=== PATIENT | male | born 1955 | race Caucasian/White ===

== ENCOUNTER → 2017-05-03 | Outpatient (CLI) | payer MEDICARE ==
--- NOTE | 2017-05-03 21:19 | RAD ---
MR of the right knee Indication: Chronic right knee pain, worsening medial knee pain. Technique: The standard multiplanar sequences are obtained. Findings: Mild motion degradation. Medial meniscus: Blunted with abnormal signal, compatible with a tear. Lateral meniscus: Abnormal signal and distortion compatible with a tear. Anterior cruciate ligament: Intact Posterior cruciate ligament: Intact Medial collateral ligament: Intact. Iliotibial band: Intact. Posterolateral structures: Fibular collateral ligament, biceps tendon and popliteus tendon are intact. Extensor mechanism: Intact. Fluid: Small joint effusion. Articular cartilage -patellofemoral joint: Severe chondromalacia at the lower femoral trochlea. Mild chondromalacia of the patella. -medial compartment: Moderate to severe chondromalacia. -lateral compartment: Severe chondromalacia at the posterior weightbearing lateral femoral condyle and lateral tibial plateau. Bones: No significant lesion or acute fracture. Soft tissue: Diffuse soft tissue edema or contusion. Intramuscular edema or strain within the distal vastus medialis muscle. Impression: 1. Medial meniscal tear. 2. Lateral meniscal tear. 3. Severe primary osteoarthritis. Electronically signed by: Tyrese Ivey MD (05/03/2017 9:16 PM) [facility]
== END | disposition home or self-care (01) ==
LOC: MRI 15:32
PROVIDERS: ATTEND Orthopaedic Surgery
DX: M17.11 Unilateral primary osteoarthritis, right knee (principal); S83.241A Other tear of medial meniscus, current injury, right knee, initial encounter; S83.281A Other tear of lateral meniscus, current injury, right knee, initial encounter; X58.XXXA Exposure to other specified factors, initial encounter; Y93.89 Activity, other specified; Y92.89 Other specified places as the place of occurrence of the external cause; Y99.8 Other external cause status
CPT/HCPCS: 73721

== ENCOUNTER → 2017-05-14 | Outpatient (CLI) | payer MEDICARE, OTHER ==
[~2017-05-14] MED LIST: CELE200C PO; CHOL100013 PO; FISH1CAP PO; LISI10TA2 PO
[2017-05-14 08:55] LABS: BASO % 1 % (0-3); EOS % 2 % (0-3); HEMATOCRIT 49.4 % (39.0-53.0); HEMOGLOBIN 16.1 g/dL (13.0-17.5); LYMPH # 1.7 x10^3/uL (1.0-4.8); LYMPH % 27 % (24-48); MEAN CORPUSCULAR HEMOGLOBIN 29 pg (25-35); MEAN CORPUSCULAR HGB CONC 33 g/dL (31-37); MEAN CORPUSCULAR VOLUME 90 fL (79-100); MONO % 8 % (0-9); NEUT % 63 % (31-73); PLATELET COUNT 253 x10^3/uL (140-400); WHITE BLOOD COUNT 6.6 x10^3/uL (4.0-11.0)
[2017-05-14 09:01] LABS: ALBUMIN 4.2 g/dL (3.4-5.0); CALCIUM 8.5 mg/dL (8.5-10.1); CREATININE 0.9 mg/dL (0.7-1.3); GFR 86.4; POTASSIUM 4.3 mmol/L (3.5-5.1)
[2017-05-14 09:06] LABS: PROTHROMBIN TIME PATIENT 12.5 SEC (11.7-14.0)
[2017-05-14 09:54] LABS: BILIRUBIN,URINE NEGATIVE (NEG); GLUCOSE,URINE NEGATIVE (NEG); NITRITE,URINE NEGATIVE (NEG); PROTEIN,URINE NEGATIVE (NEG-TRACE); UROBILINOGEN,URINE 0.2 mg/dL (0.2 mg/dL)
[2017-05-14 10:35] LABS: BACTERIA,URINE 0 /HPF (0-FEW); RBC,URINE OCC /HPF (0-2); SQUAMOUS EPITHELIAL CELL,UR FEW /LPF; WBC,URINE 0 /HPF (0-4)
--- NOTE | 2017-05-14 13:24 | RAD ---
2 view chest radiograph 05/14/2017 Indication: Preoperative evaluation for joint replacement. Hypertension. Comparison: None. Findings: Cardiac and mediastinal silhouettes are within normal limits. No pleural effusion, pneumothorax or focal consolidation. Impression: No acute cardiopulmonary abnormality.
== END | disposition home or self-care (01) ==
LOC: SURGPAT 13:32
PROVIDERS: ATTEND Orthopaedic Surgery
DX: Z01.818 Encounter for other preprocedural examination (principal); I10 Essential (primary) hypertension
CPT/HCPCS: 36415; 71020; 80048; 81001; 82040; 85027; 85610; 85651; 85730; 87641

== ENCOUNTER 2017-05-29 08:51 | Inpatient (IN) | payer MEDICARE, OTHER ==
[2017-05-29] VITALS (7 sets, daily range): BP systolic 140–160; BP diastolic 80–94
[~2017-05-29] VITALS: Ht 185.4 cm; Wt 97.5 kg
[~2017-05-29 08:51] MED LIST changes: +CELECOXIB 200 MG CAPSULE. PO PRN; +CLINDAMYCIN 600MG PREMIX 50 ML IV PRN; +HYDROcodone/APAP 7.5/325MG 1 TAB TABLET PO PRN; +IV RINGERS,LACTATED 1000ML 1,000 ML IV SCH; +LIDOCAINE 1% 1 ML SYRINGE. ID PRN; +MORPHINE SULFATE 5 MG, KETOROLAC TROMETHAMINE 30 MG, ROPIVacaine 0.5% PF 60 ML, EPINEPH... INT ART ONE; +ONDANSETRON PF 4 MG/2 ML VIAL. IV PRN; +PROCHLORPERAZINE 10 MG/2 ML VIAL. IV PRN; +TRANEXAMIC ACID 1,000 MG in IV NS 50ML -- 1ST BAG INJ ONE; +TRANEXAMIC ACID 1,000 MG in IV NS 50ML -- 2ND BAG INJ ONE; +fentaNYL PF VIAL 100 MCG/2 ML VIAL IV PRN
[2017-05-29 10:00] LABS: PROTHROMBIN TIME PATIENT 12.9 SEC (11.7-14.0)
[2017-05-29] MEDS ORDERED: MIDAZOLAM HCL/PF 2 MG/2 ML VIAL. ONE ×2 (10:33→11:36)
[2017-05-29] MEDS ORDERED: PROPOFOL 20 ML IV ONE (10:33)
[2017-05-29] MEDS ORDERED: PROPOFOL 50 ML IV ONE ×3 (10:33→13:41)
[2017-05-29] MEDS ORDERED: LIDOCAINE 2% PF Vial for OR 5 ML VIAL. ONE (10:34)
[2017-05-29] MEDS ORDERED: fentaNYL PF VIAL 100 MCG/2 ML VIAL ONE ×3 (11:24→15:15)
[2017-05-29] MEDS ORDERED: PROCHLORPERAZINE 10 MG/2 ML VIAL. IV PRN (11:45)
[2017-05-29] MEDS ORDERED: DEXTROSE 50% 25 GM / 50ML DISP.SYRIN. IV PRN (11:45)
[2017-05-29] MEDS ORDERED: oxyCODONE/APAP 5/325 1 TAB TABLET PO PRN (11:45)
[2017-05-29] MEDS ORDERED: 0.9 % SODIUM CHLORIDE 10 ML DISP.SYRIN. IV PRN (11:45)
[2017-05-29] MEDS ORDERED: MORPHINE SULFATE 2 MG/ML DISP.SYRIN. IV PRN (11:45)
[2017-05-29] MEDS ORDERED: CALCIUM CARBONATE 500 MG TAB.CHEW PO PRN (11:45)
[2017-05-29] MEDS ORDERED: ACETAMINOPHEN 325 MG TABLET. PO PRN (11:45)
[2017-05-29] MEDS ORDERED: diphenhydrAMINE 50 MG/ML VIAL IV PRN (11:45)
[2017-05-29] MEDS ORDERED: MORPHINE SULFATE 4 MG/ML DISP.SYRIN. IV PRN ×3 (11:45→11:58)
[2017-05-29] MEDS ORDERED: fentaNYL PF VIAL 100 MCG/2 ML VIAL IV PRN ×2 (11:45)
[2017-05-29] MEDS ORDERED: ZOLPIDEM 5 MG TABLET. PO PRN (11:45)
[2017-05-29] MEDS ORDERED: MORPHINE SULFATE 10 MG/ML VIAL. IV PRN (11:45)
[2017-05-29] MEDS ORDERED: GLYCOPYRROLATE 1 MG/5 ML VIAL. ONE (12:18)
[2017-05-29] MEDS: fentaNYL PF VIAL 100 MCG/2 ML VIAL IV PRN ×4 (14:46→15:44)
--- NOTE | 2017-05-29 14:53 | PDOC4 ---
Operative Note Operative Note Date of operation: 05/29/2017 Preoperative diagnosis: DJD right knee Postoperative diagnosis: Same Procedure is right total knee arthroplasty Surgeon: [facility] Dentist: Samantha Anesthesia spinal Estimated blood loss: 500 mL Complications: None Specimens: Cartilage surfaces to pathology Operative indications: Patient is a 61-year-old male well-known to me from long- standing nonoperative treatment of right knee pain and DJD. He previously got reasonable relief from corticosteroid injections which have now lost their effectiveness and was also unresponsive to hyaluronic acid injection anti- inflammatory medications and activity modification. At this point is having severe pain worse on start up worse with activities severely affecting his activities of daily living and is been uncontrolled by nonoperative means above. He has familiar with total knee arthroplasty in the past and we had talked through risks benefits postoperative course possible other nonoperative treatment alternatives which really I think have been exhausted this point he is really not a candidate for bracing and based on the limitations that he has is more willing to consider more definitive treatment at this time. Operative text, patient was identified procedure verified patient placed in the supine position on the operating table after adequate amounts of spinal anesthesia were administered along with some sedation a thigh tourniquet was placed on the right lower extremity and right lower extremity was prepped and draped in standard sterile fashion after timeout was performed patient procedure identified and verified a midline incision was made with a medial parapatellar approach. No tourniquet was used and bleeding points were controlled during the procedure with electrocautery and an aqua Mantis device. Patella was everted fat pad was excised he was noted to have significant degenerative change tricompartmentally drilling was carried out to accommodate the intramedullary guide and a standard cut was made as he had minimal flexion contracture distal femur was sized at a size 6 and placed in 3 of external rotation cutting guide was used to cut AP and chamfer cuts. ACL and menisci were excised PCL was initially preserved however on making the tibial cut the PCL was compromised enough that I elected to proceed with a posterior stabilized construct. After flexion and extension gaps were established with a size 13 mm gap spacer femur was prepared for the posterior stabilized implant and trialing was carried out with the size 13 mm spacer which gave excellent stability ligament balance. Patella was prepared with a 35 mm guide and reaming carried out lateral bone was excised to prevent any impingement and excellent patellar tracking was noted with the patellar button. The size 6 tibial component was drilled and broached for the keel and trial components were removed. After thorough anticoagulation carried out with an aqua Mantis device and the posterior capsule and in the area of the geniculate's, the following [employer] components were cemented into place with Palacos cement a size 6 journey tibial baseplate a size 6 right journey to Oxinium femoral component and a 35 mm resurfacing round patellar component. All excess cement was removed the knee was stabilized with a size 13 spacer and after cement was dry and the stability motion verified the temporary spacer was removed irrigation again carried out normal saline solution and a right 13 mm journey to highly cross- linked polyethylene articular insert was snapped in place Hemovac drain and pain catheter were placed pain catheter mixture was infused throughout the joint capsule and closure accomplished with #2 Ethibond in a interrupted and then running fashion. Strata fix #1 suture was run along the medial retinaculum as well subcutaneous closure with buried Vicryl suture skin closure with subcuticular #3 Monocryl strata fix and a shaina suction dressing was placed and verified to have a good seal. Patient was returned to recovery room in stable condition having tolerated the procedure well. Please note that Samantha harris was present and assisted in prepping draping retraction and skin closure SUZANNA SNOW MD May 29, 2017 14:53
--- NOTE | 2017-05-29 15:02 | RAD ---
Right knee, 2 views, 05/29/2017: History: Postop evaluation A total knee replacement has been inserted in satisfactory position. A surgical drain is present anteriorly. There is no evidence of a retained surgical instrument, needle or radiopaque sponge on these 2 views. IMPRESSION: No significant postoperative abnormality is detected.
[2017-05-29] MEDS ORDERED: WARFARIN 7.5 MG TABLET. PO ONE (17:30)
[2017-05-29] MEDS: oxyCODONE/APAP 7.5/325 1 TAB TABLET PO PRN (18:15)
[2017-05-29] MEDS: FERROUS SULFATE 325 MG TABLET. PO SCH (18:16)
[2017-05-29] MEDS: CLINDAMYCIN 600MG PREMIX 50 ML IV SCH (20:21)
[2017-05-29] MEDS: CELECOXIB 200 MG CAPSULE. PO SCH (21:34)
[2017-05-29] MEDS: IV DEXTROSE 5 %-0.45 % NACL 1,000 ML IV SCH ×2 (22:10→22:11)
--- NOTE | 2017-05-30 00:56 | ACF ---
Admission Forms Criteria PAIN MANAGEMENT GR Clinical Indications for Admission to Inpatient Care (Place 'X' for any and all applicable criteria): Hospital admission is needed for appropriate care of the patient because of 1 or more of the following are present (1)(2)(3)(4)(5): [ ]I. Severe pain requiring acute inpatient management as indicated by 1 or more of the following (2)(5)(10): [ ]a) Continuous or frequent (eg, every 2 to 4 hours) parenteral analgesics required [A] [ ]b) Necessity (ie, alternative approaches not effective) for analgesic regimen that can only be performed or initiated in inpatient setting [X]II. Pain causing debilitation to the point of inability to function or be supported at any other level of care [ ]III. Severe side effects from pain medications as indicated by ANY ONE of the following (12)(13)(14)(15): [ ]a) Uncontrollable seizures [ ]b) Cardiac arrhythmias of immediate concern [ ]c) Dehydration that is severe or persistent [ ]d) Vomiting that is severe or persistent [ ]e) Altered mental status that is severe or persistent [ ]f) Obstipation with inadequate GI function to maintain nutrition The original [employer] content created by [employer] has been revised. The portions of the content which have been revised are identified through the use of italic text or in bold, and [facility] has neither reviewed nor approved the modified material. All other unmodified content is copyright [employer]. Please see references footnoted in the original [employer] edition 2016 Admission Criteria Met?: Yes TELMA WALL May 30, 2017 00:56
[2017-05-30] MEDS: CLINDAMYCIN 600MG PREMIX 50 ML IV SCH ×2 (02:27→08:30)
[2017-05-30 02:30] VITALS: BP 143/86
[2017-05-30 04:56] LABS: INR 1.1 (0.8-1.1); PROTHROMBIN TIME PATIENT 13.6 SEC (11.7-14.0)
[2017-05-30] MEDS ORDERED: MAGNESIUM HYDROXIDE 2,400 MG/30 ML ORAL.SUSP. PO PRN (06:00)
[2017-05-30 06:46] VITALS: BP 140/84
[2017-05-30] MEDS: MULTIVITAMIN with MINERAL TABLET. PO SCH (08:28)
[2017-05-30] MEDS: FERROUS SULFATE 325 MG TABLET. PO SCH ×2 (08:28→17:26)
[2017-05-30] MEDS: CELECOXIB 200 MG CAPSULE. PO SCH ×2 (08:28→20:56)
[2017-05-30] MEDS: oxyCODONE/APAP 7.5/325 1 TAB TABLET PO PRN (08:28)
[2017-05-30] MEDS: LISINOPRIL 10 MG TABLET PO SCH (08:30)
[2017-05-30] MEDS: SENNOSIDES/DOCUSATE 8.6/50MG TABLET. PO SCH (08:30)
[2017-05-30] MEDS: IV DEXTROSE 5 %-0.45 % NACL 1,000 ML IV SCH ×2 (10:00→17:44)
[2017-05-30 10:20] LABS: HEMATOCRIT 39.8 % (39.0-53.0)
[2017-05-30 15:04] VITALS: BP 144/65
[2017-05-30] MEDS ORDERED: BISACODYL 10 MG SUPP.RECT. PR PRN (16:00)
[2017-05-30] MEDS ORDERED: WARFARIN 5 MG TABLET. PO ONE (16:00)
--- NOTE | 2017-05-30 17:38 | PDOC ---
PROGRESS NOTES Subjective Subjective Problems overnight: Joesph actually did reasonably well with physical therapy today but felt a little bit woozy on getting up earlier in the morning. His blood pressures were a bit low on standing but remained good in more of a seated position that has seemed to resolve throughout the day as he has less of those issues certainly no chest pain shortness of breath or other complaints and pain is well-controlled as he has not had pain medicine for about 8 hours Objective Vital Signs Vital Signs Date Time Temp Pulse Resp B/P (MAP) Pulse Ox O2 Delivery O2 Flow Rate FiO2 05/30/17 15:04 97.5 68 16 144/65 (91) 99 Room Air 97.5 05/29/17 14:30 6 Physical Exam On examination no drainage on his shaina dressing he has excellent range of motion good stability patellofemoral tracking intact distal neurovascular status mild expected swelling Labs Laboratory Tests Test 05/29/17 08:30 05/30/17 04:10 Prothrombin Time 12.9 SEC (11.7-14.0) 13.6 SEC (11.7-14.0) Prothromb Time International Ratio 1.0 (0.8-1.1) 1.1 (0.8-1.1) Activated Partial Thromboplast Time 26 SEC (24-38) Hemoglobin 13.0 g/dL (13.0-17.5) Hematocrit 39.8 % (39.0-53.0) Mean Corpuscular Hemoglobin Concent 33 g/dL (31-37) Laboratory Tests Test 05/30/17 04:10 Hemoglobin 13.0 g/dL (13.0-17.5) Hematocrit 39.8 % (39.0-53.0) Mean Corpuscular Hemoglobin Concent 33 g/dL (31-37) Prothrombin Time 13.6 SEC (11.7-14.0) Prothromb Time International Ratio 1.1 (0.8-1.1) Imaging Postop x-rays show total knee arthroplasty in excellent position Assessment Assessment POD# [1], S/P [right total knee arthroplasty] Problems: Plan Plan of Care Continue mobilize with physical therapy Coumadin anticoagulation Plan on outpatient rehabilitation in [place] with [facility] on discharge We will hold blood pressure medicines in a.m. and continue to observe as it appears as if his symptoms have adequately resolved from any orthostatic standpoint at present SUZANNA SNOW MD May 30, 2017 17:38
[2017-05-30] MEDS: HYDROcodone/APAP 7.5/325MG 1 TAB TABLET PO PRN ×2 (18:35→21:34)
[2017-05-30 19:00] VITALS: BP 112/73
[2017-05-31] VITALS (8 sets, daily range): BP systolic 94–156; BP diastolic 52–78
[2017-05-31] MEDS: HYDROcodone/APAP 7.5/325MG 1 TAB TABLET PO PRN ×5 (03:12→21:01)
[2017-05-31 07:06] LABS: HEMATOCRIT 40.4 % (39.0-53.0); HEMOGLOBIN 13.1 g/dL (13.0-17.5)
[2017-05-31 07:19] LABS: INR 1.4 (0.8-1.1)
[2017-05-31] MEDS: SENNOSIDES/DOCUSATE 8.6/50MG TABLET. PO SCH (08:53)
[2017-05-31] MEDS: CELECOXIB 200 MG CAPSULE. PO SCH ×2 (08:53→21:01)
[2017-05-31] MEDS: FERROUS SULFATE 325 MG TABLET. PO SCH ×2 (08:53→16:54)
[2017-05-31] MEDS: MULTIVITAMIN with MINERAL TABLET. PO SCH (08:54)
[2017-05-31] MEDS: LISINOPRIL 10 MG TABLET PO SCH (09:00)
--- NOTE | 2017-05-31 13:59 | PATHOLOGY ---
PATHOLOGY REPORT * * * * * * * * FINAL DIAGNOSIS: Segments of bone and soft tissue, right total knee arthroplasty: - Degenerative arthritis. - Synovial tissue showing focal mild non-specific chronic inflammation. (JPM:mgr; 05/31/2017) REPORT ELECTRONICALLY SIGNED BY: Mateusz Baumann M.D. DATE/TIME: 05/31/2017 13:58 * * * * * * * * GROSS PATHOLOGY: Received in formalin labeled "Ashley Joiner, right knee tissue," are multiple segments of bone, including tibial plateau, measuring 13.0 x 12.3 x 3.8 cm in aggregate dimensions admixed with soft tissue; meniscus is present. There are degenerative changes of the articular surfaces. Eburnation is not grossly evident upon sectioning. Cigarette Book Maker sections of bone and soft tissue are submitted in cassette A1, following decalcification. ([facility]; 05/30/2017) INITIAL CPT CODE(S): A; 42721, 13569 Professional services [place] [place] [address] Technical services performed by [facility] at [address] [place] [address]. SPECIMEN(S) RECEIVED: A.Right knee tissue CLINICAL HISTORY: Right knee OA, DJD PATIENT: ASHLEY JOINER /AGE: 110/30/1955 (Age: 61) PATIENT #: [id number] ALT CASE #: SPECIMEN COLLECTION DATE: 05/29/2017 SPECIMEN RECEIVED DATE: 05/29/2017 [facility] - [address] [place] [address] - PHONE: [phone] * * * END OF REPORT * * *
[2017-05-31] MEDS ORDERED: WARFARIN 5 MG TABLET. PO ONE (16:00)
--- NOTE | 2017-05-31 16:48 | PDOC ---
ORTHO PROGRESS NOTES Subjective Patient is doing well today, pain controlled. Doing well with therapy. Denies CP /SOB Post-op Day: 2 (Right TKA) Vitals Vital Signs Date Time Temp Pulse Resp B/P (MAP) Pulse Ox O2 Delivery O2 Flow Rate FiO2 05/31/17 15:07 98.0 74 20 122/72 (89) 94 Room Air 98.0 Labs Laboratory Tests Test 05/30/17 04:10 05/31/17 06:40 Hemoglobin 13.0 g/dL (13.0-17.5) 13.1 g/dL (13.0-17.5) Hematocrit 39.8 % (39.0-53.0) 40.4 % (39.0-53.0) Mean Corpuscular Hemoglobin Concent 33 g/dL (31-37) 33 g/dL (31-37) Prothrombin Time 13.6 SEC (11.7-14.0) 16.0 SEC (11.7-14.0) Prothromb Time International Ratio 1.1 (0.8-1.1) 1.4 (0.8-1.1) Laboratory Tests Test 05/31/17 06:40 Hemoglobin 13.1 g/dL (13.0-17.5) Hematocrit 40.4 % (39.0-53.0) Mean Corpuscular Hemoglobin Concent 33 g/dL (31-37) Prothrombin Time 16.0 SEC (11.7-14.0) Prothromb Time International Ratio 1.4 (0.8-1.1) Notes Patient is awake and alert sitting up in bed, breathing nonlabored, no acute distress. incision covered with dressing, intact. moderate edema, N/V intact RLE Problems: (1) Degenerative arthritis of right knee Assessment and Plan Anticoagulation per pharmacy PT/OT, WBAT pain controlled anticipate DC tomorrow Problem Qualifiers (1) Degenerative arthritis of right knee: Osteoarthritis type: primary Qualified Codes: M17.11 - Unilateral primary osteoarthritis, right knee MICHAEL CHACKO WATCH REPAIRER May 31, 2017 16:48
[2017-06-01] VITALS (7 sets, daily range): BP systolic 83–157; BP diastolic 48–84
[2017-06-01] MEDS: HYDROcodone/APAP 7.5/325MG 1 TAB TABLET PO PRN (02:02)
[2017-06-01 07:13] LABS: INR 1.3 (0.8-1.1); PROTHROMBIN TIME PATIENT 15.2 SEC (11.7-14.0)
[2017-06-01 08:03] LABS: HEMATOCRIT 37.1 % (39.0-53.0); HEMOGLOBIN 12.2 g/dL (13.0-17.5)
[2017-06-01] MEDS: HYDROcodone/APAP 10/325 1 TAB TABLET PO PRN ×2 (08:34→12:57)
[2017-06-01] MEDS: CELECOXIB 200 MG CAPSULE. PO SCH (08:34)
[2017-06-01] MEDS: LISINOPRIL 10 MG TABLET PO SCH (08:35)
[2017-06-01] MEDS: SENNOSIDES/DOCUSATE 8.6/50MG TABLET. PO SCH (08:35)
[2017-06-01] MEDS: MULTIVITAMIN with MINERAL TABLET. PO SCH (08:35)
[2017-06-01] MEDS: FERROUS SULFATE 325 MG TABLET. PO SCH (08:35)
[2017-06-01] MEDS ORDERED: WARFARIN 5 MG TABLET. PO ONE (14:00)
== END 2017-06-01 15:50 | disposition home or self-care (01) | DRG 470 ==
LOC: OPSVCIP 08:51 → 4 SOUTHEST 16:45 → 4 NORTH 05-31 18:31
PROVIDERS: ADMIT Orthopaedic Surgery; ATTEND Orthopaedic Surgery
PROC: 0SRC0J9 Replacement of Right Knee Joint with Synthetic Substitute, Cemented, Open Approach (ICD-10-PCS; principal; 2017-05-29 09:50)
DX: M17.11 Unilateral primary osteoarthritis, right knee (principal); Z88.0 Allergy status to penicillin
CPT/HCPCS: 36415; 73560; 85014; 85018; 85610; 85730; 86850; 86900; 86901; 88305; 88311; J0171; J0780; J1885; J2250; J2270; J2704; J2795; J3010; J3490; J7030; J7120; 97110; 97116; 97530; 97535; C1769; J2001

== ENCOUNTER → 2020-03-16 | Outpatient (CLI) | payer MEDICARE, OTHER ==
[2017-06-01 15:00] VITALS: BP 125/70
[~2020-03-16] MED LIST changes: +ASCO500C9 PO; -CELECOXIB 200 MG CAPSULE. PO PRN; -CLINDAMYCIN 600MG PREMIX 50 ML IV PRN; +EVOL140P3 SQ; -HYDROcodone/APAP 7.5/325MG 1 TAB TABLET PO PRN; -IV RINGERS,LACTATED 1000ML 1,000 ML IV SCH; -LIDOCAINE 1% 1 ML SYRINGE. ID PRN; -MORPHINE SULFATE 5 MG, KETOROLAC TROMETHAMINE 30 MG, ROPIVacaine 0.5% PF 60 ML, EPINEPH... INT ART ONE; -ONDANSETRON PF 4 MG/2 ML VIAL. IV PRN; -PROCHLORPERAZINE 10 MG/2 ML VIAL. IV PRN; -TRANEXAMIC ACID 1,000 MG in IV NS 50ML -- 1ST BAG INJ ONE; -TRANEXAMIC ACID 1,000 MG in IV NS 50ML -- 2ND BAG INJ ONE; +UBID100C26 PO; -fentaNYL PF VIAL 100 MCG/2 ML VIAL IV PRN
[2020-03-16 18:43] LABS: BASO % 1 % (0-3); EOS # 0.2 x10^3/uL (0.0-0.7); EOS % 3 % (0-3); HEMATOCRIT 46.1 % (39.0-53.0); HEMOGLOBIN 15.6 g/dL (13.0-17.5); LYMPH % 28 % (24-48); MEAN CORPUSCULAR HEMOGLOBIN 30 pg (25-35); MEAN CORPUSCULAR HGB CONC 34 g/dL (31-37); MEAN CORPUSCULAR VOLUME 90 fL (79-100); MONO # 0.6 x10^3/uL (0.0-1.1); MONO % 8 % (0-9); NEUT # 4.4 x10^3/uL (1.8-7.7); NEUT % 61 % (31-73); PLATELET COUNT 278 x10^3/uL (140-400); RED BLOOD COUNT 5.13 x10^6/uL (4.30-5.70); RED CELL DISTRIBUTION WIDTH 13.9 % (11.5-14.5); WHITE BLOOD COUNT 7.1 x10^3/uL (4.0-11.0)
== END | disposition home or self-care (01) ==
LOC: SURGPAT 14:42
PROVIDERS: ATTEND Orthopaedic Surgery
DX: Z01.818 Encounter for other preprocedural examination (principal); M17.12 Unilateral primary osteoarthritis, left knee; I10 Essential (primary) hypertension; Z88.0 Allergy status to penicillin; Z88.8 Allergy status to other drugs, medicaments and biological substances; Z79.899 Other long term (current) drug therapy
CPT/HCPCS: 36415; 82306; 85025; 86140; 87641

== ENCOUNTER → 2020-04-02 | Outpatient (CLI) | payer MEDICARE, OTHER ==
[2017-06-01 15:00] VITALS: BP 125/70
[~2020-04-02] MED LIST changes: +OXYC1TAB15 PO; +WARF3TAB50 PO
[2020-04-02 13:57] LABS: PROTHROMBIN TIME PATIENT 12.5 SEC (11.7-14.0)
--- NOTE | 2020-04-02 14:21 | RAD ---
EXAM: Chest, 2 views. HISTORY: Preoperative evaluation. COMPARISON: None. FINDINGS: 2 views of the chest are obtained. There is no infiltrate, pleural effusion or pneumothorax. The heart is normal in size. IMPRESSION: No acute pulmonary finding. Electronically signed by: Carrie Eid MD (04/02/2020 2:18 PM) [facility]
== END | disposition home or self-care (01) ==
LOC: SURGPAT 13:05
PROVIDERS: ATTEND Orthopaedic Surgery
DX: Z01.818 Encounter for other preprocedural examination (principal); Z11.59 Encounter for screening for other viral diseases; M17.12 Unilateral primary osteoarthritis, left knee
CPT/HCPCS: 36415; 71046; 85610; 85730; C9803; U0003